=== PATIENT | male | born 1975 | race African-American/Black ===

== ENCOUNTER 2023-05-30 06:07 | Emergency (ER) | payer OTHER ==
[2023-05-30 06:17] VITALS: BP 125/88; PULSE 102; RESP 18; TEMP 98.3; BMI 28.3
[2023-05-30] MEDS ORDERED: LOPERAMIDE HCL 2 MG CAPSULE ONE (07:55)
[2023-05-30 08:32] LABS: BASO % 0.3 % (0-2.0); EOS % 0.2 % (0-4.5); HEMATOCRIT 50.6 % (35.4-49); HEMOGLOBIN 17.1 GM/dL (11.7-16.9); LYMPH % 14.1 % (8-40); MCH 29.8 pg (25.7-33.7); MCHC 33.9 g/dl (32.0-35.9); MEAN CELL VOLUME 87.9 fl (80-96); MEAN PLT VOLUME 9.9 fl (7.5-11.1); MONO % 8.9 % (3.8-10.2); NEUT % 76.5 % (42.8-82.8); PLATELET COUNT 229 10^3/uL (134-434); RBC 5.76 M/mm3 (4.00-5.60); RDW 12.4 % (11.9-15.9); WHITE BLOOD COUNT 6.3 K/mm3 (4.0-10.0)
[2023-05-30] MEDS: LOPERAMIDE HCL 2 MG CAPSULE PO ONE (08:38)
[2023-05-30] MEDS: SODIUM CHLORIDE 1,000 ML IV STA ×2 (08:38→09:39)
[2023-05-30 08:52] LABS: POTASSIUM 4.5 mmol/L (3.5-5.1)
[2023-05-30 08:54] LABS: CALCIUM 9.4 mg/dL (8.5-10.1)
[2023-05-30 08:55] LABS: ALBUMIN 4.2 g/dl (3.4-5.0); MAGNESIUM 1.8 mg/dL (1.8-2.4)
[2023-05-30 08:57] LABS: CREATININE 1.9 mg/dL (0.55-1.3)
[2023-05-30 08:59] LABS: BILIRUBIN,TOTAL 0.6 mg/dL (0.2-1); TOT PROT 8.6 g/dl (6.4-8.2)
[2023-05-30 11:30] LABS: PH,URINE 5.5 (5.0-8.0); URINE APPEARANCE CLEAR; URINE BILIRUBIN NEGATIVE (NEGATIVE); URINE COLOR YELLOW; URINE GLUCOSE (UA) NEGATIVE (NEGATIVE); URINE KETONE NEGATIVE (NEGATIVE); URINE LEUK ESTERASE NEGATIVE (NEGATIVE); URINE NITRITE NEGATIVE (NEGATIVE); URINE PROTEIN TRACE (NEGATIVE); URINE UROBILINOGEN 0.2 mg/dL (0.2-1.0)
[2023-05-30 12:50] LABS: POTASSIUM 4.1 mmol/L (3.5-5.1)
[2023-05-30 12:51] LABS: CALCIUM 8.2 mg/dL (8.5-10.1)
[2023-05-30 12:52] LABS: BLOOD UREA NITROGEN 27.2 mg/dL (7-18)
[2023-05-30 12:55] LABS: CREATININE 1.6 mg/dL (0.55-1.3)
== END 2023-05-30 14:15 | disposition left against medical advice (07) ==
LOC: JER 06:07
PROC: 3E0337Z Introduction of Electrolytic and Water Balance Substance into Peripheral Vein, Percutaneous Approach (ICD-10-PCS; principal; 2023-05-30)
PROC: 3E0337Z Introduction of Electrolytic and Water Balance Substance into Peripheral Vein, Percutaneous Approach (ICD-10-PCS; 2023-05-30)
DX: R50.9 Fever, unspecified (principal); R11.10 Vomiting, unspecified; R19.7 Diarrhea, unspecified; E86.0 Dehydration; N17.9 Acute kidney failure, unspecified; Z20.822 Contact with and (suspected) exposure to COVID-19
CPT/HCPCS: 0241U-QW; 36415; 76775-TC; 76856-TC; 80048; 80053; 81003; 83690; 83735; 84300; 85025; 87045; 87046; 87209; 99284-25